=== PATIENT | male | born 1965 | race Caucasian/White ===

== ENCOUNTER 2020-09-04 04:54 | Observation (INO) | payer OTHER, SELFPAY ==
[2020-09-04] VITALS (15 sets, daily range): BP systolic 117–133; BP diastolic 74–87; PULSE 80–106; RESP 16–22; TEMP 36.4–36.7; O2SAT 95–99; BMI 26.9
--- NOTE | 2020-09-04 04:55 | XRR_ITS ---
PROCEDURE INFORMATION: Exam: XR Chest Exam date and time: 09/04/2020 5:23 AM Age: 54 years old Clinical indication: Chest pain; Other: Mid sternal; Additional info: Cp TECHNIQUE: Imaging protocol: XR of the chest Views: 1 view. COMPARISON: No relevant prior studies available. FINDINGS: Lungs: Unremarkable. No consolidation. Pleural spaces: Unremarkable. No pleural effusion. No pneumothorax. Heart/Mediastinum: Unremarkable. No cardiomegaly. Bones/joints: Unremarkable. XR/XR chest 1V portable [id number] IMPRESSION: No acute findings.
--- NOTE | 2020-09-04 04:55 | ECG_ITS ---
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
--- NOTE | 2020-09-04 05:03 | W.ED.CHESTPA ---
HPI - Chest Pain General: Chief Complaint: Chest Pain Stated Complaint: CHEST PAIN/ NEAR SYNCOPE Time Seen by Provider: 09/04/20 04:56 Source: patient and EMS Mode of arrival: EMS Limitations: no limitations History of Present Illness: HPI narrative: 54-year-old male states that he woke up this morning at 330 and was having chest pain. States it was a sharp pain in his chest that lasted roughly 30 minutes to 1 hour. He states he also had 2 near syncopal events as well. He states the pain is relieved on its own. He was given aspirin in route. He denies any pain currently. He denies any shortness of breath. He has no history of high blood pressure or high cholesterol. Denies any vomiting or diarrhea. Denies any headache. MD complaint: chest pain Associated symptoms: Reports syncope; Deny abdominal pain, dyspnea, fever(s), nausea or vomiting Review of Systems Const: Denies: fever(s), chills, body aches or change in appetite Eyes: Denies: blurry vision or eye discomfort ENMT: Denies: throat pain or dental pain Card: Reports: chest pain and syncope Resp: Denies: dyspnea GI: Denies: abdominal pain, nausea, vomiting or diarrhea : Denies: dysuria Musc: Denies: neck pain or back pain Skin/Breast: Denies: rash Neuro: Denies: headache(s) Psych: Denies: depression Brody/Lymph: Denies: easy bruising All/Imm: Denies: urticaria Physical Exam Const: COMMON NORMALS: no acute distress, patient oriented x3 and healthy appearing HENMT: COMMON NORMALS: normocephalic and atraumatic HEAD & SCALP: normocephalic and atraumatic Eye: COMMON NORMALS: Equal, round and reactive pupils present and EOMs intact bilaterally PUPIL: Yes Equal, round and reactive pupils present Neck/C-Spine: COMMON NORMALS: full ROM and supple Chest: COMMONS NORMALS: normal inspection of the chest and normal palpation of entire chest wall Resp: COMMON NORMALS: normal respiratory effort, No retractions, No use of accessory muscles and clear to auscultation bilaterally AUSCULTATION: clear to auscultation bilaterally Cardio: COMMON NORMALS: regular rate, regular rhythm and No murmurs present (Cardio) RATE: regular rate RHYTHM: regular rhythm GI: COMMON NORMALS: Normal to inspection, nondistended, normoactive bowel sounds present, Soft to palpation, non-tender and no masses PALPATION: Yes Soft to palpation Extremity: COMMON NORMALS: normal to inspection and full ROM Neuro: COMMON NORMALS: patient oriented x3, moves all extremities and no focal motor deficits Psych: COMMON NORMALS: mental status grossly normal, Normal thought process present and cooperative THOUGHT PROCESS: Normal thought process present Skin: COMMON NORMALS: no rashes or lesions noted and no wounds GENERAL SKIN EXAM: no rashes or lesions noted Course Vital Signs: Vital signs: Vital Signs Temperature 97.9 F 09/04/20 04:56 Pulse Rate 87 09/04/20 05:44 Respiratory Rate 20 H 09/04/20 05:44 Blood Pressure 117/81 09/04/20 05:44 Pulse Oximetry 96 09/04/20 05:44 MDM - Chest Pain MDM Narrative: Medical decision making narrative: Hema presents here with chest pain along with 2 syncopal events this morning. Patient's initial troponin is normal so his EKG. Did speak to patient and he is concerned with the passing out. Spoke to hospitalist and will admit for observation. Lab Data: Labs: Lab Results 09/04/20 09/04/20 09/04/20 Range/Units 05:02 05:02 05:02 WBC 4.2 (4.0-10.0) 10^3/ uL RBC 5.19 (4.1-5.3) 10^6/u L Hgb 15.2 (11.7-16.6) g/dL Hct 44.9 (42.0-52.0) % MCV 86.5 (80-94) fL MCH 29.3 (28.0-34.0) pg MCHC 33.9 (30.0-36.0) g/dL RDW 12.3 (12.1-15.1) % Plt Count 172 (130-400) 10^3/c mm MPV 9.4 (7.4-10.4) fL Neut % (Auto) 60.4 % Lymph % (Auto) 22.4 % [place] % (Auto) 13.9 % Eos % (Auto) 2.6 % Baso % (Auto) 0.5 % Neut # (Auto) 2.51 (1.8-7.7) 10^3/u L Lymph # (Auto) 0.9 (0.8-4.8) 10^3/u L [place] # (Auto) 0.6 (0.2-0.9) 10^3/u L Eos # (Auto) 0.1 (0.0-0.8) 10^3/u L Baso # (Auto) 0.0 (0.0-0.1) 10^3/u L Nucleated RBC % (a uto) 0 % Nucleated RBCs # 0.0 /100WBC Sodium 137 (136-145) mmol/L Potassium 4.0 (3.5-5.1) mmol/L Chloride 103 (98-107) mmol/L Carbon Dioxide 27 (22-29) mmol/L Anion Gap 11.0 (5-19) BUN 13 (6-20) mg/dL Creatinine 1.0 (0.7-1.2) mg/dL GFR Calculation 77.6 L (90-130) mL/min Glucose 112 (65-115) mg/dL Calculated Osmolal ity 285 (285-295) mOsm/k g Calcium 9.4 (8.5-10.5) mg/dL Total Bilirubin 0.5 (0.15-1.2) mg/dL AST 20 (0-40) U/L ALT 21 (0-41) U/L Alkaline Phosphata se 82 (40-130) IU/L Troponin T Baselin e 10 (0-15) ng/L Total Protein 6.8 (6.6-8.7) g/dL Albumin 4.3 (3.5-5.2) g/dL Globulin 2.5 (1.3-4.6) g/dL Imaging Data^: CXR: Attestation: I personally reviewed and interpreted this imaging study as follows: My impression: no acute abnormality EKG Data^: EKG 1: Attestation: I personally reviewed and interpreted this EKG as follows: EKG interpretation date: 09/04/20 EKG interpretation time: 05:02 Interpretation: nsr hr [address] or t wave abnormalities qrs 88 qtc 368 Discharge Plan Discharge Patient Disposition: Admitted As Inpatient Clinical Impression: Chest pain Qualifiers: Chest pain type: unspecified Qualified Code(s): R07.9 - Chest pain, unspecified Syncope Qualifiers: Syncope type: unspecified Qualified Code(s): R55 - Syncope and collapse Condition: Stable Coding Level of Care Code ED 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
[2020-09-04 05:15] LABS: Basophils % 0.5 %; Eosinophils # 0.1 10^3/uL (0.0-0.8); Eosinophils % 2.6 %; Hematocrit 44.9 % (42.0-52.0); Hemoglobin 15.2 g/dL (11.7-16.6); Lymphocytes # 0.9 10^3/uL (0.8-4.8); Lymphocytes % 22.4 %; Mean Corpuscular HGB Conc 33.9 g/dL (30.0-36.0); Mean Corpuscular Hemoglobin 29.3 pg (28.0-34.0); Mean Corpuscular Volume 86.5 fL (80-94); Mean Platelet Volume 9.4 fL (7.4-10.4); Monocytes # 0.6 10^3/uL (0.2-0.9); Monocytes % 13.9 %; Neutrophils # 2.51 10^3/uL (1.8-7.7); Neutrophils % 60.4 %; Nucleated Red Blood Cells % 0 %; Platelet Count 172 10^3/cmm (130-400); Red Blood Count 5.19 10^6/uL (4.1-5.3); Red Cell Distribution Width 12.3 % (12.1-15.1); White Blood Count 4.2 10^3/uL (4.0-10.0)
[2020-09-04 05:40] LABS: Alanine Aminotransferase 21 U/L (0-41); Albumin Level 4.3 g/dL (3.5-5.2); Alkaline Phosphatase 82 IU/L (40-130); Aspartate Amino Transferase 20 U/L (0-40); Blood Urea Nitrogen 13 mg/dL (6-20); Calcium 9.4 mg/dL (8.5-10.5); Carbon Dioxide 27 mmol/L (22-29); Chloride 103 mmol/L (98-107); Globulin 2.5 g/dL (1.3-4.6); Glomerular Filtration Rate 77.6 mL/min (90-130); Glucose 112 mg/dL (65-115); Osmolality Calculated 285 mOsm/kg (285-295); Sodium 137 mmol/L (136-145); Total Bilirubin 0.5 mg/dL (0.15-1.2); Total Protein 6.8 g/dL (6.6-8.7); Troponin(5th) Baseline 10 ng/L (0-15)
--- NOTE | 2020-09-04 05:46 | PM.HP ---
Providers/Chief Complaint Chief Complaint: CHEST PAIN/ NEAR SYNCOPE History of Present Illness Hema Price is a 54 year old male who has no previous medical history presented today with chief complaint of chest pain. Patient is stating that he woke up around 3 AM with chief complaint of chest pain which she describing as pressure-like sensation he initially attributed his symptoms to GERD and went to the other room to get Rolaids but because of worsening symptoms he took aspirin, this pain was not radiating, was staying in substernal area, not associated with nausea, vomiting diarrhea or fever orthopnea PND or shortness of breath however experienced 2 syncopal events. Was syncopal event happened when he was getting dressed up, reviewed consciousness as soon as he hit the floor, second time he was feeling lightheaded, sat on the sofa when he was getting ready to come to the ER and felt very weak. 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, he is denying any chest discomfort during sexual activity or during his work, does not smoke or drink alcohol Review of Systems Const: Reports: fever(s) and chills Eyes: Denies: change in vision ENMT: Reports: throat pain Card: Reports: chest pain and syncope Resp: Denies: dyspnea GI: Denies: abdominal pain : Denies: flank pain Musc: Denies: neck pain Skin/Breast: Denies: rash Neuro: Denies: headache(s) Psych: Denies: anxiety Endo: Denies: polyuria Brody/Lymph: Denies: easy bruising All/Imm: Denies: urticaria Medications/Allergies Home Medications Medication Instructions Recorded Confirmed Last Taken Type No Known Home Medications 09/04/20 09/04/20 Unknown History Allergies Allergy/AdvReac Type Severity Reaction Status Date / Time No Known Allergies Allergy Verified 09/04/20 05:06 PFSH Acute PFSH: Medical History (Updated 09/04/20 @ 06:30 by Andrés Whitney MD) No pertinent past medical history Surgical History (Updated 09/04/20 @ 06:27 by Andrés Whitney MD) No pertinent past surgical history Family History (Updated 09/04/20 @ 06:27 by Andrés Whitney MD) Family/Other CAD (coronary artery disease) Maternal uncle Social History (Updated 09/04/20 @ 06:27 by Andrés Whitney MD) Smoking and tobacco status: never smoked Alcohol intake: current Alcohol intake frequency: holidays/special occasions only Substance/Drug Use: never Lives independently: Yes Household members: spouse Vitals/I&O/Wt Last Vital Signs Temp 97.9 F 09/04/20 04:56 Pulse 87 09/04/20 05:44 Resp 20 H 09/04/20 05:44 BP 117/81 09/04/20 05:44 Pulse Ox 96 09/04/20 05:44 Weight last 48 hrs Weight 82.554 kg Physical Exam Narrative: EXAM NARRATIVE: Very pleasant middle-age male currently sitting comfortably, appears stated age no dehydration, no active distress Sinus rhythm S1, S2 no murmur appreciated No signs of heart failure Abdomen soft nontender bowel sound present Bilateral breath sounds without adventitious rhonchi or crackles Neurological no focal deficit EOMI, PERRLA Awake alert oriented x3 GCS 15 Lower extremity no edema gangrene ulcer Posterior pharyngeal wall hyperemia noted without any abscess, poor dental hygiene with gingivitis Data : 09/04/20 05:02 09/04/20 05:02 A&P Assessment and plan (1) Chest pain: Unstable angina Relieved with nitro which was given by EMS Patient felt chest discomfort for about 30 minutes until got sublingual nitroglycerin Active for his age and is currently working full-time as a 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 EKG unremarkable currently chest pain-free sinus rhythm, CBC, BMP unremarkable, D-dimer unremarkable We will get echo Status: Acute Qualifiers: Chest pain type: unspecified Qualified Code(s): R07.9 - Chest pain, unspecified (2) Syncope: Chest pain associate with syncope EKG and electrolytes reviewed they are normal Would recommend Holter monitoring if his echo is unremarkable Would request TSH PE less likely Seizure unlikely Status: Acute Qualifiers: Syncope type: unspecified Qualified Code(s): R55 - Syncope and collapse (3) Sore throat: I got supple posterior pharyngeal wall, but she pharyngeal wall is hyperemic without any abscess, gingivitis with poor dental hygiene, no lymphadenopathy, patient is endorsing low-grade fever Status: Acute Attestations Medical Necessity Statement*: Anticipating discharge in less than 48 hours will need echo to rule out etiology for syncope and possibly Holter monitoring before discharge Time Spent in Patient Care: (>than 50% of time spent in counselling and/or direct pt care on unit). 45mins Coding Level of Care Code Acute Rope Maker for Ranig Obduliod Diagnoses Chest pain R07.9 Chest pain type: unspecified Syncope R55 Syncope type: unspecified Sore throat J02.9
[2020-09-04 06:00] LABS: D Dimer 0.46 ug/mIFEU (0-0.59)
--- NOTE | 2020-09-04 06:55 | ECG_ITS ---
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
[2020-09-04 07:32] LABS: Troponin 5 2HR 9.54 ng/L (0-15)
[2020-09-04 07:32] LABS: Chol HDL Ratio 3.78 mg/dL (1.0-5.00); Cholesterol 170 mg/dL (0-200); HDL Cholesterol 45 mg/dL (60-100); LDL Cholesterol Calculated 104 mg/dL (50-129); LDL HDL Ratio 2.31 RATIO (0.00-3.22); Triglycerides 104 mg/dL (0-150)
[2020-09-04 07:41] LABS: Troponin 5 2HR Delta -0.46 ABS# (0-10)
--- NOTE | 2020-09-04 09:50 | PC.CHAP ---
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 visit [] Patient/Family/Request visit [] Outpatient visit [] Follow-up visit [] Physician referral [] Code/Alert [x] Routine visit [] Staff referral [] Actively dying [] Patient sleeping [] Family support [] [] Out of room [] Palliative care [] [] Receiving care in room [] Pre-surgical visit [] Trauma [] Long length of stay [] ICU visit [] Other: Relational/Emotional Strength [x] Patient feels connected with others/family/visitors/staff [] Distress [] Loneliness/isolation [] Abandonment Spirituality of Patient [] Person of Angela [] Attends Yazdanism of their Angela [] Believes in Prayer [] Reads Bible or Sikh materials [x] There are Spiritual issues to be addressed 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 Interventions [] Prayer [] Active listening [] Non-anxious presence [] Spiritual/emotional support [] Crisis/trauma care [] Spiritual counseling [] Bereavement support [] Provided bereavement packet [] Provided Bible/devotional materials [] Provided toy/stuffed animal, coloring book to patient or family member [] Provided Communion [] Anointing/Pamplico [] Salvation [x] Completed spiritual assessment [] Other: Impact on Illness or Injury [] Angry [] Fearful [] Anxious [] Often cries [] Exhaustion [] Unable to work [] Unable to attend taoist [] Unable to walk/stand [] Unable to read [] Unable to drive [] Unable to eat/drink [] Unable to sleep [] Unable to be with family [] Patient intubated [] Other: Summary Time spent with patient 1o min
[2020-09-04] MEDS: enoxaparin 40 mg/0.4 mL Syringe SUBCUT (10:25)
[2020-09-04 10:45] LABS: Magnesium 1.9 mg/dL (1.7-2.3); Thyroid Stimulating Hormone 11.47 uIU/mL (0.27-4.20)
--- NOTE | 2020-09-04 10:55 | ECG_ITS ---
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
--- NOTE | 2020-09-04 12:06 | PM.DCS ---
Discharge Providers Date of Admission: 09/04/20 05:44 Date of Discharge: September 04, 2020 Attending Provider at Admission: Andrés Whitney MD Attending Provider at Discharge: Brian Sanders MD Diagnoses at Discharge Discharge Diagnosis (1) Chest pain: Status: Acute Permanent problem details: Most likely GI in origin. Qualifiers: Chest pain type: unspecified Qualified Code(s): R07.9 - Chest pain, unspecified (2) Syncope: Status: Acute Permanent problem details: Ruled out Qualifiers: Syncope type: unspecified Qualified Code(s): R55 - Syncope and collapse (3) Sore throat: Status: Acute (4) Pharyngitis, streptococcal: Status: Acute Permanent problem details: Present on admission (5) GERD (gastroesophageal reflux disease): Status: Acute Permanent problem details: Present on admission (6) Hypothyroidism: Status: Acute Permanent problem details: Present on admission Reason for Visit Reason for Visit: CHEST PAIN/ NEAR SYNCOPE Hospital Course Hospital Course Patient woke up this morning with 9 out of 10 pressure-like pain across his right and left chest. Pain was nonradiating and not associated with nausea shortness of breath or diaphoresis. Denies any similar pain before. He was given nitroglycerin and aspirin with improvement. Reports that when pain initially started he thought it is secondary to his reflux disease. Reports that he lately has been having similar pain especially after he eats spicy tuna which he did last evening. He rarely takes ibuprofen and denies recent treatment with steroids. He is physically active and denies any history of chest pain or shortness of breath with exertion. His EKG and troponin were negative. Patient's pain felt to be noncardiac and he is going to be discharged home today on omeprazole. Patient was found to have pharyngitis with exudates noted on exam. Patient reports that he previously had several episodes of strep throat and therefore he was started on penicillin. Cultures are not available yet. Patient will be discharged on omeprazole. Patient was told to avoid NSAIDs. Patient does not have any cardiac risk factors but after discussion with his he opted to have outpatient stress test which will be requested with results sent to primary care physician. Physical Exam Narrative: EXAM NARRATIVE: Heart is regular and lungs are clear. Abdomen is soft and nontender with positive bowel sounds. Oropharynx shows mild erythema with exudates noted. Patient does report sore throat. Denies cough. Has no lower extremity edema. Discharge Data Data Completed and Pending: Completed Studies During Hospitalization Category Date Time Status XR chest 1V dorie ble [id number] Stat Exams 09/04/20 04:55 Completed Pending at discharge Category Date Time Status Streptococcus Cul ture Group A Stat Lab 09/04/20 06:06 Received CV echo complete* [id number] Routine Ultrasound 09/04/20 09:40 Ordered Labs from last 24 hours 09/04/20 09/04/20 09/04/20 06:46 05:02 05:02 WBC RBC Hgb Hct MCV MCH MCHC RDW Plt Count MPV Neut % (Auto) Lymph % (Auto) [place] % (Auto) Eos % (Auto) Baso % (Auto) Neut # (Auto) Lymph # (Auto) [place] # (Auto) Eos # (Auto) Baso # (Auto) Nucleated RBC % (a uto) Nucleated RBCs # D-Dimer Sodium Potassium Chloride Carbon Dioxide Anion Gap BUN Creatinine GFR Calculation Glucose Calculated Osmolal ity Calcium Magnesium 1.9 Total Bilirubin AST ALT Alkaline Phosphata se Troponin T Baselin e Troponin T 120 Min marshall 9.54 Delta Troponin T -0.46 L Total Protein Albumin Globulin Triglycerides 104 Cholesterol 170 LDL Cholesterol, C alc 104 HDL Cholesterol 45 L LDL/HDL Ratio 2.31 Cholesterol/HDL Ra tiffani 3.78 TSH 11.47 H 09/04/20 09/04/20 09/04/20 05:02 05:02 05:02 WBC RBC Hgb Hct MCV MCH MCHC RDW Plt Count MPV Neut % (Auto) Lymph % (Auto) [place] % (Auto) Eos % (Auto) Baso % (Auto) Neut # (Auto) Lymph # (Auto) [place] # (Auto) Eos # (Auto) Baso # (Auto) Nucleated RBC % (a uto) Nucleated RBCs # D-Dimer 0.46 Sodium 137 Potassium 4.0 Chloride 103 Carbon Dioxide 27 Anion Gap 11.0 BUN 13 Creatinine 1.0 GFR Calculation 77.6 L Glucose 112 Calculated Osmolal ity 285 Calcium 9.4 Magnesium Total Bilirubin 0.5 AST 20 ALT 21 Alkaline Phosphata se 82 Troponin T Baselin e 10 Troponin T 120 Min marshall Delta Troponin T Total Protein 6.8 Albumin 4.3 Globulin 2.5 Triglycerides Cholesterol LDL Cholesterol, C alc HDL Cholesterol LDL/HDL Ratio Cholesterol/HDL Ra tiffani TSH 09/04/20 05:02 WBC 4.2 RBC 5.19 Hgb 15.2 Hct 44.9 MCV 86.5 MCH 29.3 MCHC 33.9 RDW 12.3 Plt Count 172 MPV 9.4 Neut % (Auto) 60.4 Lymph % (Auto) 22.4 [place] % (Auto) 13.9 Eos % (Auto) 2.6 Baso % (Auto) 0.5 Neut # (Auto) 2.51 Lymph # (Auto) 0.9 [place] # (Auto) 0.6 Eos # (Auto) 0.1 Baso # (Auto) 0.0 Nucleated RBC % (a uto) 0 Nucleated RBCs # 0.0 D-Dimer Sodium Potassium Chloride Carbon Dioxide Anion Gap BUN Creatinine GFR Calculation Glucose Calculated Osmolal ity Calcium Magnesium Total Bilirubin AST ALT Alkaline Phosphata se Troponin T Baselin e Troponin T 120 Min marshall Delta Troponin T Total Protein Albumin Globulin Triglycerides Cholesterol LDL Cholesterol, C alc HDL Cholesterol LDL/HDL Ratio Cholesterol/HDL Ra tiffani TSH Vitals: Last Vital Signs Temp 98.1 F 09/04/20 10:40 Pulse 85 09/04/20 10:40 Resp 16 09/04/20 10:40 BP 133/85 09/04/20 10:40 Pulse Ox 96 09/04/20 10:40 Discharge Plan Discharge Patient Disposition: Home Condition: Stable Prescriptions: New omeprazole 40 mg capsule,delayed release(DR/EC) 40 mg PO DAILY Qty: 30 RF: 0 levothyroxine 125 mcg capsule 125 mcg PO DAILY Qty: 30 RF: 0 penicillin V potassium 500 mg tablet 500 mg PO Q12H 10 Days Qty: 20 RF: 0 No Action No Known Home Medications RF: 0 Discharge Orders: Discharge Order (Routine); Ordered 09/04/20 Ordered By: Brian Sanders Other Ambulatory Orders: Sestamibi Stress Test Request (Routine) Timeframe: 2 Days Facility: [facility] - Location: Card[facility] Diagnostic Laboratory Ordered By: Brian Sanders Referrals: Alex Becerra MD [Referring] - 4-7 days Discharge Diet: Advance as tolerated Discharge Activity: Resume usual activity Activity Restrictions/Additional Instructions: Please call your doctor or present to emergency department if your condition worsens or you develop diarrhea, lightheadedness, fatigue or see blood in your stool or black stool. Please avoid NSAIDs. Okay to take [id number] Tylenol for pain as needed. Discharge Attestations Time Spent in Discharge Care*: greater than 30 min Quality Metrics Clinical Quality Measures During this hospital stay, did patient experience: None Coding Level of Care Code Acute Process Tank Tender for Ranig Fwd Diagnoses Chest pain R07.9 Chest pain type: unspecified Syncope R55 Syncope type: unspecified Sore throat J02.9 Pharyngitis, streptococcal J02.0 GERD (gastroesophageal reflux disease) K21.9 Hypothyroidism E03.9
[2020-09-04] MEDS: penicillin v potassium 250 mg Tablet 500 MG PO (13:08)
--- NOTE | 2020-09-04 14:03 | PC.NURSE ---
Patient accidentally left with the paper he had signed at discharge
== END 2020-09-04 13:50 | disposition home or self-care (01) ==
LOC: ER 05:45 → MEDSURG 09:23
PROVIDERS: Admitting Provider Internal Medicine; Emergency Provider Emergency Medicine; Visit Provider Internal Medicine
DX: R07.9 Chest pain, unspecified (principal); R55 Syncope and collapse; J02.9 Acute pharyngitis, unspecified; J02.0 Streptococcal pharyngitis; K21.9 Gastro-esophageal reflux disease without esophagitis; E03.9 Hypothyroidism, unspecified; Z82.49 Family history of ischemic heart disease and other diseases of the circulatory system
CPT/HCPCS: 71045; 80053; 80061; 83735; 84443; 84484; 85025; 85378; 87081; 93005; 96372; 99285; G0378; J1650

== ENCOUNTER 2020-10-26 11:59 | Outpatient (CLI) | payer OTHER, SELFPAY | END 2020-10-26 12:00 | disposition home or self-care (01) | LOC: SLEEP 11-19 12:51 | PROVIDERS: Visit Provider Nurse Practitioner Family | DX: G47.10 Hypersomnia, unspecified (principal); G47.33 Obstructive sleep apnea (adult) (pediatric) | CPT/HCPCS: G0399 ==